=== PATIENT | male | born 1955 | race African-American/Black ===

== ENCOUNTER 2022-04-04 14:01 | Outpatient (CLI) | payer MEDICARE, OTHER | END 2022-04-04 14:02 | disposition home or self-care (01) | LOC: CSHCP 14:01 | PROVIDERS: ATTEND Internal Medicine Critical Care Medicine | DX: Z79.899 Other long term (current) drug therapy (principal); J98.8 Other specified respiratory disorders | CPT/HCPCS: 94010; 94726; 94729; 94760 ==

== ENCOUNTER 2023-10-02 10:11 | Outpatient (CLI) | payer MEDICARE, OTHER | END 2023-10-02 10:12 | disposition home or self-care (01) | LOC: CSHCP 10:11 | PROVIDERS: ATTEND Internal Medicine Critical Care Medicine | DX: I50.22 Chronic systolic (congestive) heart failure (principal); Z79.899 Other long term (current) drug therapy; J98.4 Other disorders of lung | CPT/HCPCS: 94010; 94726; 94729; 94760 ==

== ENCOUNTER 2024-03-29 17:00 | Outpatient (CLI) | payer MEDICARE, OTHER | END 2024-03-29 23:00 | disposition home or self-care (01) | LOC: CSHSLEEP 17:00 | PROVIDERS: ATTEND Internal Medicine Critical Care Medicine | DX: R06.3 Periodic breathing (principal); R53.83 Other fatigue; R06.83 Snoring | CPT/HCPCS: 95811 ==